=== PATIENT | male | born 1960 | race Caucasian/White ===

== ENCOUNTER 2017-12-31 13:55 | Inpatient (IN) | payer OTHER ==
[~2017-12-31 13:55] MED LIST: ATROPINE 1 MG/10 ML SYRINGE
[2017-12-31 14:13] LABS: ADD MAN DIFF? NO
[2017-12-31 14:15] LABS: BASOPHIL # 0.1 10^3/ul (0.0-0.1); BASOPHILS % 0.4 % (0.0-2.0); EOSINOPHILS # 0.1 10^3/ul (0.0-0.5); EOSINOPHILS % 0.6 % (0.0-7.0); HEMATOCRIT 47.1 % (42.0-52.0); HEMOGLOBIN 15.5 g/dl (14.0-18.0); LYMPHOCYTES # 4.5 10^3/ul (0.8-2.9); LYMPHOCYTES % 21.8 % (15.0-51.0); MEAN CORPUSCULAR HEMOGLOBIN 29.1 pg (29.0-33.0); MEAN CORPUSCULAR HGB CONC 32.9 g/dl (32.0-37.0); MEAN CORPUSCULAR VOLUME 88.5 fl (82.0-101.0); MEAN PLATELET VOLUME 11.5 fl (7.4-10.4); MONOCYTE # 1.5 10^3/ul (0.3-0.9); MONOCYTES % 7.1 % (0.0-11.0); NEUTROPHIL # 14.3 10^3/ul (1.6-7.5); NEUTROPHILS % 69.4 % (39.0-77.0); PLATELET COUNT 356 10^3/UL (140-415); RED BLOOD COUNT 5.32 10^6/ul (4.70-6.10); RED CELL DISTRIBUTION WIDTH 13.2 % (11.5-14.5)
[2017-12-31 14:15] LABS: WHITE BLOOD COUNT 20.7 10^3/ul (4.8-10.8)
[2017-12-31] MEDS ORDERED: IODIXANOL LOCM 100 ML BTL ×2 (14:17→15:01)
[2017-12-31] MEDS ORDERED: LIDOCAINE 1% (MDV) 20 ML INJ (14:17)
[2017-12-31] MEDS ORDERED: MIDAZOLAM 1 MG/ML 2 ML INJ (14:20)
[2017-12-31] MEDS ORDERED: FENTAnyl 50 MCG/ML VIAL (14:20)
[2017-12-31] MEDS ORDERED: NITROGLYCERIN (IC) 100 MCG/ML INJ ×2 (14:21→14:31)
[2017-12-31] MEDS: SOD CHLORIDE 0.9% 1,000 ML IV ×3 (14:30→17:29)
[2017-12-31] MEDS ORDERED: HEPARIN 25000 UNITS/250 ML 250 ML (14:30)
[2017-12-31] MEDS: HEPARIN 1000 UNITS/ML 10 ML INJ IV (14:30)
[2017-12-31] MEDS ORDERED: BIVALIRUDIN 250MG /NS 50 ML 50 ML IVPB ×2 (14:31→14:52)
[2017-12-31] MEDS ORDERED: TICAGRELOR 90 MG TABLET (14:35)
[2017-12-31 14:38] LABS: ANION GAP 23 (8-16); CARBON DIOXIDE 21 mmol/L (21-31); CHLORIDE 105 mmol/L (97-110); GLUCOSE 127 mg/dl (70-220)
[2017-12-31] MEDS ORDERED: VERAPAMIL 5 MG INJ (14:38)
[2017-12-31 14:40] LABS: BLOOD UREA NITROGEN 17 mg/dl (7-20); CALCIUM 9.2 mg/dl (8.4-10.2); CREATININE 1.04 mg/dl (0.61-1.24); POTASSIUM 4.7 mmol/L (3.5-5.1); SODIUM 144 mmol/L (135-144)
[2017-12-31 14:58] LABS: TROPONIN-I 0.423 ng/ml (0.00-0.12)
[2017-12-31] MEDS: BIVALIRUDIN 250 MG in SOD CHLORIDE 0.9% 500 ML IV (16:00)
[2017-12-31] MEDS ORDERED: ACETAMINOPHEN 325 MG TAB PO (16:00)
[2017-12-31] MEDS ORDERED: OXYCODONE/ACETAMINOPHEN (5/325) TAB PO (16:00)
[2017-12-31] MEDS ORDERED: morphine 2 MG INJ IV (16:00)
[2017-12-31] MEDS ORDERED: ATROPINE 1 MG/10 ML SYRINGE (20:29)
[2017-12-31 20:42] LABS: CK INDEX 8.8; CREATINE KINASE 3113 IU/L (23-200)
[2017-12-31 20:52] LABS: ADD MAN DIFF? NO
[2017-12-31 21:04] LABS: BASOPHIL # 0.1 10^3/ul (0.0-0.1); BASOPHILS % 0.5 % (0.0-2.0); EOSINOPHILS % 0.3 % (0.0-7.0); HEMATOCRIT 42.2 % (42.0-52.0); HEMOGLOBIN 14.3 g/dl (14.0-18.0); LYMPHOCYTES # 2.9 10^3/ul (0.8-2.9); LYMPHOCYTES % 19.3 % (15.0-51.0); MEAN CORPUSCULAR HEMOGLOBIN 29.1 pg (29.0-33.0); MEAN CORPUSCULAR HGB CONC 33.9 g/dl (32.0-37.0); MEAN CORPUSCULAR VOLUME 85.8 fl (82.0-101.0); MEAN PLATELET VOLUME 11.1 fl (7.4-10.4); MONOCYTE # 1.3 10^3/ul (0.3-0.9); MONOCYTES % 8.8 % (0.0-11.0); NEUTROPHIL # 10.4 10^3/ul (1.6-7.5); NEUTROPHILS % 70.6 % (39.0-77.0); PLATELET COUNT 309 10^3/UL (140-415); RED BLOOD COUNT 4.92 10^6/ul (4.70-6.10); RED CELL DISTRIBUTION WIDTH 13.2 % (11.5-14.5)
[2017-12-31 21:04] LABS: WHITE BLOOD COUNT 14.8 10^3/ul (4.8-10.8)
[2017-12-31 21:12] LABS: ALANINE AMINOTRANSFERASE 93 IU/L (13-69); ALBUMIN 3.6 g/dl (3.3-4.9); ALKALINE PHOSPHATASE 64 IU/L (42-121); ANION GAP 13 (8-16); ASPARTATE AMINO TRANSFERASE 416 IU/L (15-46); BILIRUBIN,INDIRECT 0.5 mg/dl (0-1.1); BILIRUBIN,TOTAL 0.5 mg/dl (0.2-1.3); BLOOD UREA NITROGEN 15 mg/dl (7-20); CALCIUM 8.8 mg/dl (8.4-10.2); CARBON DIOXIDE 24 mmol/L (21-31); CHLORIDE 107 mmol/L (97-110); CREATININE 0.85 mg/dl (0.61-1.24); GLUCOSE 92 mg/dl (70-220); POTASSIUM 4.3 mmol/L (3.5-5.1); SODIUM 140 mmol/L (135-144); TOTAL PROTEIN 7.2 g/dl (6.1-8.1)
[2017-12-31] MEDS: ATORVASTATIN 80 MG TAB PO (21:30)
[2017-12-31] MEDS: FAMOTIDINE 20 MG TAB PO (21:30)
[2017-12-31] MEDS: DOCUSATE SODIUM 100 MG CAP PO (21:30)
[2017-12-31] MEDS: TICAGRELOR 90 MG TABLET PO (21:34)
[2017-12-31] MEDS ORDERED: ZOLPIDEM 5 MG TAB (23:17)
[2017-12-31] MEDS: ZOLPIDEM 5 MG TAB PO (23:32)
[2018-01-01 05:39] LABS: ADD MAN DIFF? NO
[2018-01-01 05:44] LABS: ABNORMAL IP MESSAGE 1; BASOPHIL # 0.1 10^3/ul (0.0-0.1); BASOPHILS % 0.3 % (0.0-2.0); EOSINOPHILS # 0.1 10^3/ul (0.0-0.5); EOSINOPHILS % 0.4 % (0.0-7.0); HEMATOCRIT 42.1 % (42.0-52.0); HEMOGLOBIN 14.2 g/dl (14.0-18.0); LYMPHOCYTES # 2.9 10^3/ul (0.8-2.9); LYMPHOCYTES % 19.2 % (15.0-51.0); MEAN CORPUSCULAR HEMOGLOBIN 29.2 pg (29.0-33.0); MEAN CORPUSCULAR HGB CONC 33.7 g/dl (32.0-37.0); MEAN CORPUSCULAR VOLUME 86.6 fl (82.0-101.0); MEAN PLATELET VOLUME 11.1 fl (7.4-10.4); MONOCYTE # 1.5 10^3/ul (0.3-0.9); NEUTROPHIL # 10.6 10^3/ul (1.6-7.5); NEUTROPHILS % 69.4 % (39.0-77.0); PLATELET COUNT 303 10^3/UL (140-415); POSITIVE DIFF @See below; RED BLOOD COUNT 4.86 10^6/ul (4.70-6.10); RED CELL DISTRIBUTION WIDTH 13.2 % (11.5-14.5)
[2018-01-01 05:44] LABS: WHITE BLOOD COUNT 15.2 10^3/ul (4.8-10.8)
[2018-01-01 06:03] LABS: ALANINE AMINOTRANSFERASE 95 IU/L (13-69); ALBUMIN 3.8 g/dl (3.3-4.9); ALBUMIN/GLOBULIN RATIO 1.15; ALKALINE PHOSPHATASE 61 IU/L (42-121); ANION GAP 15 (8-16); ASPARTATE AMINO TRANSFERASE 314 IU/L (15-46); BILIRUBIN,INDIRECT 0.6 mg/dl (0-1.1); BILIRUBIN,TOTAL 0.6 mg/dl (0.2-1.3); BLOOD UREA NITROGEN 16 mg/dl (7-20); CALCIUM 8.9 mg/dl (8.4-10.2); CARBON DIOXIDE 25 mmol/L (21-31); CHLORIDE 106 mmol/L (97-110); CHOL/HDL RATIO 5.6 RATIO; CHOLESTEROL 181 mg/dl (100-200); CREATININE 0.86 mg/dl (0.61-1.24); GLUCOSE 110 mg/dl (70-220); HDL CHOLESTEROL 32 mg/dl (28-71); INR 1.05; LDL CHOLESTEROL,CALCULATED 128 mg/dl; MAGNESIUM 1.8 mg/dl (1.7-2.5); POTASSIUM 4.2 mmol/L (3.5-5.1); PROTIME 13.8 Sec (11.9-14.9); PT RATIO 1.1; SODIUM 142 mmol/L (135-144); TOTAL PROTEIN 7.1 g/dl (6.1-8.1); TRIGLYCERIDES 103 mg/dl (0-149)
[2018-01-01 06:07] LABS: B-TYPE NATRIURETIC PEPTIDE 986 PG/ML (0-125)
[2018-01-01 06:21] LABS: FREE T4 (FREE THYROXINE) 0.87 ng/dl (0.64-1.79)
[2018-01-01 06:29] LABS: CK INDEX 5.7; CREATINE KINASE 2346 IU/L (23-200)
[2018-01-01] MEDS: FAMOTIDINE 20 MG TAB PO ×2 (08:53→20:24)
[2018-01-01] MEDS: DOCUSATE SODIUM 100 MG CAP PO ×2 (08:53→20:25)
[2018-01-01] MEDS: ASPIRIN (EC) 81 MG TAB PO (08:54)
[2018-01-01] MEDS: TICAGRELOR 90 MG TABLET PO ×2 (08:55→20:27)
[2018-01-01 13:03] LABS: HAAIG REFLEX REFLEX FILED
[2018-01-01 13:42] LABS: HEPATITIS B SURFACE ANTIGEN NEGATIVE (NEGATIVE)
[2018-01-01 14:00] LABS: HEPATITIS B CORE ANTIBODY NEGATIVE (NEGATIVE)
[2018-01-01 14:36] LABS: HEPATITIS C VIRAL ANTIBODY NEGATIVE (NEGATIVE)
[2018-01-01] MEDS: ATORVASTATIN 80 MG TAB PO (20:25)
[2018-01-02 05:37] LABS: WHITE BLOOD COUNT 12.1 10^3/ul (4.8-10.8)
[2018-01-02 05:37] LABS: ADD MAN DIFF? NO; BASOPHIL # 0.1 10^3/ul (0.0-0.1); BASOPHILS % 0.4 % (0.0-2.0); EOSINOPHILS # 0.1 10^3/ul (0.0-0.5); HEMATOCRIT 40.5 % (42.0-52.0); HEMOGLOBIN 13.5 g/dl (14.0-18.0); LYMPHOCYTES # 3.4 10^3/ul (0.8-2.9); LYMPHOCYTES % 27.8 % (15.0-51.0); MEAN CORPUSCULAR HEMOGLOBIN 28.7 pg (29.0-33.0); MEAN CORPUSCULAR HGB CONC 33.3 g/dl (32.0-37.0); MEAN PLATELET VOLUME 10.8 fl (7.4-10.4); MONOCYTE # 1.4 10^3/ul (0.3-0.9); MONOCYTES % 11.5 % (0.0-11.0); NEUTROPHIL # 7.1 10^3/ul (1.6-7.5); NEUTROPHILS % 58.6 % (39.0-77.0); PLATELET COUNT 274 10^3/UL (140-415); RED BLOOD COUNT 4.71 10^6/ul (4.70-6.10); RED CELL DISTRIBUTION WIDTH 13.2 % (11.5-14.5)
[2018-01-02 06:01] LABS: CREATINE KINASE 548 IU/L (23-200)
[2018-01-02 06:05] LABS: ALANINE AMINOTRANSFERASE 71 IU/L (13-69); ALBUMIN 3.4 g/dl (3.3-4.9); ALBUMIN/GLOBULIN RATIO 1.13; ALKALINE PHOSPHATASE 57 IU/L (42-121); ANION GAP 14 (8-16); ASPARTATE AMINO TRANSFERASE 92 IU/L (15-46); BILIRUBIN,INDIRECT 0.6 mg/dl (0-1.1); BILIRUBIN,TOTAL 0.6 mg/dl (0.2-1.3); BLOOD UREA NITROGEN 22 mg/dl (7-20); CALCIUM 8.9 mg/dl (8.4-10.2); CARBON DIOXIDE 26 mmol/L (21-31); CHLORIDE 106 mmol/L (97-110); CREATININE 0.95 mg/dl (0.61-1.24); GLUCOSE 102 mg/dl (70-220); POTASSIUM 4.4 mmol/L (3.5-5.1); SODIUM 142 mmol/L (135-144); TOTAL PROTEIN 6.4 g/dl (6.1-8.1)
[2018-01-02 06:10] LABS: B-TYPE NATRIURETIC PEPTIDE 1170 PG/ML (0-125)
[2018-01-02] MEDS: FAMOTIDINE 20 MG TAB PO (08:00)
[2018-01-02] MEDS: ASPIRIN (EC) 81 MG TAB PO (08:00)
[2018-01-02] MEDS: DOCUSATE SODIUM 100 MG CAP PO (08:00)
[2018-01-02] MEDS: TICAGRELOR 90 MG TABLET PO (08:02)
== END 2018-01-02 13:16 | disposition home or self-care (01) | DRG 246 ==
LOC: E/R 13:55 → CCL 14:13 → SDS 14:13 → CCL 15:37 → REC 15:37 → ICU 17:10
PROC: 027135Z Dilation of Coronary Artery, Two Arteries with Two Drug-eluting Intraluminal Devices, Percutaneous Approach (ICD-10-PCS; principal; 2017-12-31 13:30)
PROC: 02C03ZZ Extirpation of Matter from Coronary Artery, One Artery, Percutaneous Approach (ICD-10-PCS; 2017-12-31 13:30)
PROC: 4A023N7 Measurement of Cardiac Sampling and Pressure, Left Heart, Percutaneous Approach (ICD-10-PCS; 2017-12-31 13:30)
PROC: B211YZZ Fluoroscopy of Multiple Coronary Arteries using Other Contrast (ICD-10-PCS; 2017-12-31 13:30)
DX: I21.19 ST elevation (STEMI) myocardial infarction involving other coronary artery of inferior wall (principal); R57.0 Cardiogenic shock; I44.2 Atrioventricular block, complete; E66.9 Obesity, unspecified; Z68.27 Body mass index [BMI] 27.0-27.9, adult; F17.210 Nicotine dependence, cigarettes, uncomplicated; E78.5 Hyperlipidemia, unspecified; I25.10 Atherosclerotic heart disease of native coronary artery without angina pectoris; R74.0 Nonspecific elevation of levels of transaminase and lactic acid dehydrogenase [LDH]; R06.00 Dyspnea, unspecified
CPT/HCPCS: 71045; 80048; 80053; 80061; 82550; 82553; 83735; 83880; 84439; 84443; 84484; 85025; 85610; 86704; 86709; 86803; 87081; 87340; 93005; 93306; 93458; 99291-25; J0583

== ENCOUNTER 2018-02-11 11:18 | Inpatient (IN) | payer OTHER ==
[2018-02-11 11:47] LABS: ADD MAN DIFF? NO
[2018-02-11 11:50] LABS: BASOPHIL # 0.1 10^3/ul (0.0-0.1); BASOPHILS % 0.6 % (0.0-2.0); EOSINOPHILS # 0.2 10^3/ul (0.0-0.5); EOSINOPHILS % 1.4 % (0.0-7.0); HEMATOCRIT 45.9 % (42.0-52.0); HEMOGLOBIN 15.1 g/dl (14.0-18.0); LYMPHOCYTES % 36.5 % (15.0-51.0); MEAN CORPUSCULAR HEMOGLOBIN 28.3 pg (29.0-33.0); MEAN CORPUSCULAR HGB CONC 32.9 g/dl (32.0-37.0); MEAN PLATELET VOLUME 10.8 fl (7.4-10.4); MONOCYTE # 1.1 10^3/ul (0.3-0.9); MONOCYTES % 10.3 % (0.0-11.0); NEUTROPHIL # 5.6 10^3/ul (1.6-7.5); NEUTROPHILS % 50.7 % (39.0-77.0); PLATELET COUNT 263 10^3/UL (140-415); RED BLOOD COUNT 5.34 10^6/ul (4.70-6.10); RED CELL DISTRIBUTION WIDTH 13.2 % (11.5-14.5)
[2018-02-11 11:50] LABS: WHITE BLOOD COUNT 11.1 10^3/ul (4.8-10.8)
[2018-02-11] MEDS: NITROGLYCERIN 2% 1 GM OINT PKT TD (11:54)
[2018-02-11 12:15] LABS: ANION GAP 16 (8-16); BLOOD UREA NITROGEN 22 mg/dl (7-20); CALCIUM 9.6 mg/dl (8.4-10.2); CARBON DIOXIDE 24 mmol/L (21-31); CHLORIDE 103 mmol/L (97-110); CREATININE 0.96 mg/dl (0.61-1.24); GLUCOSE 108 mg/dl (70-220); POTASSIUM 4.4 mmol/L (3.5-5.1); SODIUM 139 mmol/L (135-144)
[2018-02-11] MEDS: IPRATROPIUM (NEB) 0.5 MG/2.5 ML AMP NEB (12:24)
[2018-02-11] MEDS: LEVALBUTEROL (NEB) 1.25 MG/0.5 ML AMP INH (12:25)
[2018-02-11 12:26] LABS: TROPONIN-I < 0.012 ng/ml (0.00-0.12)
[2018-02-11] MEDS ORDERED: DOCUSATE SODIUM 100 MG CAP PO (16:00)
[2018-02-11] MEDS ORDERED: morphine 2 MG INJ IV (16:00)
[2018-02-11] MEDS ORDERED: ONDANSETRON 4 MG INJ IV (16:00)
[2018-02-11] MEDS ORDERED: NACL 0.9% 3 ML SYG IV (16:00)
[2018-02-11] MEDS: ACETAMINOPHEN 325 MG TAB PO (16:34)
[2018-02-11 18:30] LABS: CREATINE KINASE 113 IU/L (23-200)
[2018-02-11 18:41] LABS: CK INDEX 0.9
[2018-02-11 18:44] LABS: CK-MB 1.03 ng/ml (0.0-2.4); TROPONIN-I < 0.012 ng/ml (0.00-0.12)
[2018-02-11] MEDS: ATORVASTATIN 80 MG TAB PO (21:34)
[2018-02-11] MEDS: FAMOTIDINE 20 MG TAB PO (21:34)
[2018-02-11] MEDS: TICAGRELOR 90 MG TABLET PO (21:40)
[2018-02-11] MEDS: HEPARIN 5,000 UNIT/0.5 ML VIAL SC (21:41)
[2018-02-12 00:08] LABS: CREATINE KINASE 113 IU/L (23-200)
[2018-02-12 00:23] LABS: CK-MB 1.12 ng/ml (0.0-2.4)
[2018-02-12 05:56] LABS: ADD MAN DIFF? NO
[2018-02-12 06:04] LABS: BASOPHIL # 0.1 10^3/ul (0.0-0.1); BASOPHILS % 0.6 % (0.0-2.0); EOSINOPHILS # 0.2 10^3/ul (0.0-0.5); EOSINOPHILS % 1.9 % (0.0-7.0); LYMPHOCYTES # 3.4 10^3/ul (0.8-2.9); LYMPHOCYTES % 32.8 % (15.0-51.0); MEAN CORPUSCULAR HEMOGLOBIN 28.2 pg (29.0-33.0); MEAN CORPUSCULAR HGB CONC 32.6 g/dl (32.0-37.0); MEAN CORPUSCULAR VOLUME 86.6 fl (82.0-101.0); MONOCYTE # 1.1 10^3/ul (0.3-0.9); MONOCYTES % 10.3 % (0.0-11.0); NEUTROPHIL # 5.5 10^3/ul (1.6-7.5); PLATELET COUNT 243 10^3/UL (140-415); RED BLOOD COUNT 5.31 10^6/ul (4.70-6.10); RED CELL DISTRIBUTION WIDTH 13.3 % (11.5-14.5)
[2018-02-12 06:04] LABS: WHITE BLOOD COUNT 10.2 10^3/ul (4.8-10.8)
[2018-02-12 06:22] LABS: HEMOGLOBIN A1C 5.9 % (0-5.9)
[2018-02-12 06:23] LABS: INR 0.93; PROTIME 12.5 Sec (11.9-14.9)
[2018-02-12 06:28] LABS: CREATINE KINASE 103 IU/L (23-200)
[2018-02-12 06:34] LABS: ALANINE AMINOTRANSFERASE 43 IU/L (13-69); ALBUMIN 3.6 g/dl (3.3-4.9); ALBUMIN/GLOBULIN RATIO 1.05; ALKALINE PHOSPHATASE 66 IU/L (42-121); ANION GAP 11 (8-16); ASPARTATE AMINO TRANSFERASE 23 IU/L (15-46); BILIRUBIN,INDIRECT 0.5 mg/dl (0-1.1); BILIRUBIN,TOTAL 0.5 mg/dl (0.2-1.3); BLOOD UREA NITROGEN 23 mg/dl (7-20); CALCIUM 9.5 mg/dl (8.4-10.2); CARBON DIOXIDE 29 mmol/L (21-31); CHLORIDE 105 mmol/L (97-110); CHOL/HDL RATIO 5.8 RATIO; CHOLESTEROL 181 mg/dl (100-200); CREATININE 0.94 mg/dl (0.61-1.24); GLUCOSE 116 mg/dl (70-220); HDL CHOLESTEROL 31 mg/dl (28-71); LDL CHOLESTEROL,CALCULATED 97 mg/dl; MAGNESIUM 1.8 mg/dl (1.7-2.5); PHOSPHORUS 3.7 mg/dl (2.5-4.9); POTASSIUM 4.4 mmol/L (3.5-5.1); SODIUM 141 mmol/L (135-144); TRIGLYCERIDES 264 mg/dl (0-149)
[2018-02-12 06:46] LABS: FREE T4 (FREE THYROXINE) 0.74 ng/dl (0.64-1.79)
[2018-02-12 06:51] LABS: CK-MB 1.05 ng/ml (0.0-2.4)
[2018-02-12 07:39] LABS: B-TYPE NATRIURETIC PEPTIDE 411 PG/ML (0-125)
[2018-02-12] MEDS: FAMOTIDINE 20 MG TAB PO ×2 (08:51→21:26)
[2018-02-12] MEDS: HEPARIN 5,000 UNIT/0.5 ML VIAL SC (08:53)
[2018-02-12] MEDS: TICAGRELOR 90 MG TABLET PO ×2 (08:53→22:54)
[2018-02-12] MEDS: ASPIRIN (EC) 81 MG TAB PO (09:25)
[2018-02-12] MEDS ORDERED: IOHEXOL 350MG/ML 50 ML BTL (10:50)
[2018-02-12] MEDS ORDERED: IODIXANOL LOCM 100 ML BTL ×2 (10:50→12:04)
[2018-02-12] MEDS ORDERED: HEPARIN 1000 UNITS/ML 10 ML INJ (10:50)
[2018-02-12] MEDS ORDERED: NITROGLYCERIN (IC) 100 MCG/ML INJ (10:51)
[2018-02-12] MEDS ORDERED: MIDAZOLAM 1 MG/ML 2 ML INJ (10:51)
[2018-02-12] MEDS ORDERED: VERAPAMIL 5 MG INJ (10:51)
[2018-02-12] MEDS ORDERED: FENTAnyl 50 MCG/ML VIAL (10:51)
[2018-02-12] MEDS ORDERED: ACETAMINOPHEN 325 MG TAB PO (12:00)
[2018-02-12] MEDS ORDERED: OXYCODONE/ACETAMINOPHEN (5/325) TAB PO (12:00)
[2018-02-12] MEDS ORDERED: ONDANSETRON 4 MG INJ IV (12:00)
[2018-02-12] MEDS: SOD CHLORIDE 0.9% 1,000 ML IV (17:36)
[2018-02-12] MEDS: ATORVASTATIN 80 MG TAB PO (22:54)
== END 2018-02-13 01:31 | disposition left against medical advice (07) | DRG 247 ==
LOC: E/R 11:18 → MS3 12:56
PROC: 027034Z Dilation of Coronary Artery, One Artery with Drug-eluting Intraluminal Device, Percutaneous Approach (ICD-10-PCS; principal; 2018-02-12 10:57)
PROC: 4A023N7 Measurement of Cardiac Sampling and Pressure, Left Heart, Percutaneous Approach (ICD-10-PCS; 2018-02-12 10:57)
PROC: B211YZZ Fluoroscopy of Multiple Coronary Arteries using Other Contrast (ICD-10-PCS; 2018-02-12 10:57)
PROC: B215YZZ Fluoroscopy of Left Heart using Other Contrast (ICD-10-PCS; 2018-02-12 10:57)
DX: I25.110 Atherosclerotic heart disease of native coronary artery with unstable angina pectoris (principal); I10 Essential (primary) hypertension; E78.5 Hyperlipidemia, unspecified; R07.9 Chest pain, unspecified; Z79.02 Long term (current) use of antithrombotics/antiplatelets; Z79.82 Long term (current) use of aspirin; Z95.5 Presence of coronary angioplasty implant and graft; Z87.891 Personal history of nicotine dependence
CPT/HCPCS: 36415; 71045; 80048; 80053; 80061; 82550; 82553; 83036; 83735; 83880; 84100; 84439; 84443; 84484; 85025; 85610; 93005; 93306; 93458; 94664; 99285-25